=== PATIENT | female | born 2000 | race African-American/Black ===

== ENCOUNTER 2020-10-09 13:17 | Outpatient (REF) | payer MEDICARE, MEDICAID, SELFPAY ==
[2020-10-10 09:36] LABS: BV Int Neg Control Negative (Negative); BV Int Pos Control Positive (Positive)
[2020-10-14 15:37] LABS: HPV mRNA E6/E7 rflx Not Detected (Not Detected)
[2020-10-15 11:33] LABS: CT PCR NOT DETECTED (Not Detect.); NG PCR NOT DETECTED (Not Detect.)
== END 2020-10-09 13:18 | disposition home or self-care (01) ==
LOC: HO.LAB 13:17
PROVIDERS: Visit Provider Advanced Practice Midwife
DX: Z01.419 Encounter for gynecological examination (general) (routine) without abnormal findings (principal); Z20.2 Contact with and (suspected) exposure to infections with a predominantly sexual mode of transmission; N89.8 Other specified noninflammatory disorders of vagina; Z31.69 Encounter for other general counseling and advice on procreation
CPT/HCPCS: 87480; 87491; 87510; 87591; 87624; 87625; 87660; 88142

== ENCOUNTER 2020-10-10 11:03 | Outpatient (REF) | payer MEDICAID, SELFPAY | END 2020-10-10 11:04 | disposition home or self-care (01) | LOC: HO.LAB 11:03 | PROVIDERS: Visit Provider Advanced Practice Midwife | DX: Z13.89 Encounter for screening for other disorder (principal) | CPT/HCPCS: 88142 ==

== ENCOUNTER 2020-10-18 13:45 | Outpatient (REF) | payer MEDICARE, MEDICAID, SELFPAY | END 2020-10-18 13:46 | disposition home or self-care (01) | LOC: HO.LAB 13:45 | PROVIDERS: Visit Provider Internal Medicine | DX: Z20.828 Contact with and (suspected) exposure to other viral communicable diseases (principal) | CPT/HCPCS: C9803; U0003 ==

== ENCOUNTER 2021-05-02 20:47 | Inpatient (IN) | payer MEDICARE, MEDICAID, SELFPAY ==
--- NOTE | 2021-05-02 | ECG_ITS ---
Test Reason : OVERDOSE Blood Pressure : / mmHG Vent. Rate : 077 BPM Atrial Rate : 077 BPM P-R Int : 140 ms QRS Dur : 102 ms QT Int : 422 ms P-R-T Axes : 038 034 033 degrees QTc Int : 477 ms Normal sinus rhythm Normal ECG No previous ECGs available Referred By: Cathy Shabazz Electronically Signed By:Alex Stewart
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
[2021-05-02 21:08] VITALS: BP 131/73; PULSE 84; RESP 18; TEMP 36.8; O2SAT 98; BMI 26.4
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
[2021-05-02 22:01] LABS: MANUAL DIFF FLAG NO
[2021-05-02 22:02] VITALS: BP 126/77; PULSE 75; RESP 20; O2SAT 100
[2021-05-02 22:02] LABS: Basophils Percent Auto 0.2 % (0-2); Hematocrit 36.4 % (37-47); Hemoglobin 12.5 g/dl (12.0-16.0); Imm Gran Abs Auto 0.03 X10*3/uL (0.00-0.03); Imm Gran Pct Auto 0.3 % (0.0-0.4); Lymphocytes Absolute Auto 0.8 X10*3/uL (1.2-4.9); Lymphocytes Percent Auto 8.4 % (20-40); Mean Corpuscular HGB Conc 34.3 g/dl (31.0-35.0); Mean Corpuscular Volume 81.6 fL (80-98); Mean Platelet Volume 9.1 fL (9.4-12.3); Monocytes Absolute Auto 0.2 X10*3/uL (0.1-1.2); Monocytes Percent Auto 1.8 % (2-11); Neutrophils Absolute Auto 8.9 X10*3/uL (2.0-8.3); Neutrophils Percent Auto 89.3 % (45-73); Platelet Count 324 X10*3/uL (160-400); Red Blood Count 4.46 X10*6/uL (4.20-5.50); Red Cell Distribution Width 12.5 % (11.0-16.0)
[2021-05-02 22:21] LABS: Ethanol < 10 mg/dL
[2021-05-02 22:24] LABS: Alanine Aminotransferase 20 U/L (0-31); Albumin Level 4.9 g/dL (3.5-5.0); Alkaline Phosphatase 56 U/L (39-117); Anion Gap 16 (12-20); Aspartate Amino Transferase 35 U/L (5-31); Bilirubin Total 1.2 mg/dL (0.0-1.0); Blood Urea Nitrogen 17 mg/dL (9-16); Calcium 9.3 mg/dL (8.4-10.2); Carbon Dioxide 18 mmol/L (22-29); Chloride 107 mmol/L (96-108); Creatinine Clr Calc Pharmacy 109.7; Estimated Glomerular Filt Rate > 60; Glucose Random 126 mg/dL (60-115); Sodium 137 mmol/L (135-145); Total Protein 7.8 g/dL (6.5-8.0)
[2021-05-02 22:27] LABS: Acetaminophen LAB 51 mcg/mL (<30); Lipase 14 U/L (8-78); Salicylate < 5.0 mg/dL (15-30)
--- NOTE | 2021-05-02 22:30 | PC.NURSE ---
this rn witnessed that the patient verbally confirmed she took 10+ tylenol at approximately 1030 am on 05/02/21
--- NOTE | 2021-05-02 22:42 | PC.NURSE ---
Contact made to Poision control, Plan at this time: EKG, Draw INR Pt meets criteria for aceatdose 1st bag 150mg/kg in 200ml d5w over 1 hr 2nd 50mg/kg in 500ml d5w over 4hrs 3rd bag 100mg/kg in 1L d5w over 16hrs
[2021-05-02] MEDS: Diphth,Pertus(ACell),Tet Adult 0.5 ML SYRINGE IM (22:43)
[2021-05-02] MEDS: Amoxicillin/Potassium Clav 875 MG TABLET PO (22:43)
--- NOTE | 2021-05-02 22:44 | PC.NURSE ---
confirmed pharmacy to mix aceadote for ed prior to leaving.
[2021-05-02 22:48] VITALS: BP 122/81; PULSE 80; RESP 19; O2SAT 99
[2021-05-02 22:51] LABS: INTERNATIONAL NORM RATIO 1.3 (0.9-1.1); Prothrombin Time 15.8 SEC (10.8-13.0)
[2021-05-02] MEDS: ondansetron HCL 4 MG/2 ML VIAL IVPUSH (22:51)
[2021-05-02] MEDS: 0.9 % Sodium Chloride 1,000 ML 100 ML IVCONT (23:03)
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
[2021-05-02 23:30] VITALS: BP 124/76; PULSE 76; RESP 14; TEMP 37.3; O2SAT 98
[2021-05-02 23:32] LABS: Glucose Urine UA NEG (NEG); Leukocyte Esterase Urine NEG (NEG); Nitrite Urine NEG (NEG); Specific Gravity - Urine >= 1.030 (1.005-1.025); Urine Blood NEG (NEG); Urine Ketones 15 MG/DL (NEG); Urine Protein 1+ MG/DL (NEG-TRACE)
[2021-05-02 23:34] LABS: Appearance Urine HAZY; Color Urine YELLOW; UPreg QC Valid YES; Urine Pregnancy NEGATIVE (NEGATIVE)
[2021-05-02 23:44] LABS: COVID-19 Test Negative (Negative); IDNOW Serial# 9DD0AD1C
[2021-05-02 23:46] LABS: Bacteria Urine 2+ /LPF; RBC Urine 0 /HPF (0); Squamous Epithelial Cell Urine 4+ /LPF
[2021-05-02 23:48] LABS: Amphetamine Screen Urine Not Detected (Not Detect); Barbiturates, Urine Not Detected (Not Detect); Benzodiazepines Screen Urine Not Detected (Not Detect); Cannabinoid Screen Urine Not Detected (Not Detect); Cocaine Screen Urine Not Detected (Not Detect); Opiate Screen Urine Not Detected (Not Detect); Phencyclidine Screen Urine Not Detected (Not Detect)
[2021-05-03] VITALS (7 sets, daily range): BP systolic 104–145; BP diastolic 59–95; PULSE 82–100; RESP 17–20; TEMP 36.7–37.3; O2SAT 98–100; BMI 26.8
--- NOTE | 2021-05-03 00:38 | PC.NURSE ---
kristofer from poison controll called and ekg and labs reported, no action needed at this time.
[2021-05-03] MEDS: 0.9 % Sodium Chloride Flush 3 ML SYRINGE IVFLUSH ×4 (01:27→20:57)
[2021-05-03 05:59] LABS: MANUAL DIFF FLAG NO
[2021-05-03 06:11] LABS: Basophils Percent Auto 0.3 % (0-2); Hematocrit 36.2 % (37-47); Hemoglobin 12.3 g/dl (12.0-16.0); Imm Gran Abs Auto 0.04 X10*3/uL (0.00-0.03); Imm Gran Pct Auto 0.3 % (0.0-0.4); Lymphocytes Absolute Auto 2.3 X10*3/uL (1.2-4.9); Lymphocytes Percent Auto 19.5 % (20-40); Mean Corpuscular Hemoglobin 27.8 pg (27.0-33.0); Mean Corpuscular Volume 81.9 fL (80-98); Mean Platelet Volume 9.6 fL (9.4-12.3); Monocytes Absolute Auto 0.7 X10*3/uL (0.1-1.2); Monocytes Percent Auto 6.3 % (2-11); Neutrophils Absolute Auto 8.6 X10*3/uL (2.0-8.3); Neutrophils Percent Auto 73.6 % (45-73); Platelet Count 362 X10*3/uL (160-400); Red Blood Count 4.42 X10*6/uL (4.20-5.50); Red Cell Distribution Width 12.6 % (11.0-16.0); White Blood Count 11.7 X10*3/uL (4.8-10.8)
[2021-05-03 06:33] LABS: Anion Gap 11 (12-20); Blood Urea Nitrogen 13 mg/dL (9-16); Calcium 9.1 mg/dL (8.4-10.2); Carbon Dioxide 23 mmol/L (22-29); Chloride 106 mmol/L (96-108); Creatinine Clr Calc Pharmacy 118.2; Estimated Glomerular Filt Rate > 60; Glucose Random 136 mg/dL (60-115); Potassium 4.2 mmol/L (3.3-5.1); Sodium 136 mmol/L (135-145)
[2021-05-03 08:00] LABS: Magnesium 2.2 mg/dL (1.6-2.6)
[2021-05-03] MEDS: Famotidine 20 MG TABLET PO (08:28)
[2021-05-03] MEDS: 0.9 % Sodium Chloride 1,000 ML 100 ML IVCONT (08:28)
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
[2021-05-03 12:22] LABS: Acetaminophen LAB 1 mcg/mL (<30); Alanine Aminotransferase 15 U/L (0-31); Alkaline Phosphatase 45 U/L (39-117); Aspartate Amino Transferase 25 U/L (5-31); Bilirubin Direct 0.4 mg/dL (0.0-0.5); Bilirubin Total 1.2 mg/dL (0.0-1.0); Total Protein 6.4 g/dL (6.5-8.0)
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
[2021-05-03 19:56] LABS: Acetaminophen LAB 1 mcg/mL (<30); Alanine Aminotransferase 15 U/L (0-31); Alkaline Phosphatase 46 U/L (39-117); Aspartate Amino Transferase 22 U/L (5-31); Bilirubin Direct 0.3 mg/dL (0.0-0.5); Bilirubin Total 0.7 mg/dL (0.0-1.0); Total Protein 6.4 g/dL (6.5-8.0)
[2021-05-03 20:04] LABS: INTERNATIONAL NORM RATIO 1.4 (0.9-1.1); Prothrombin Time 16.1 SEC (10.8-13.0)
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
[2021-05-04 03:06] VITALS: BP 122/71; PULSE 75; RESP 18; TEMP 36.6; O2SAT 98
[2021-05-04 06:54] VITALS: BP 131/83; PULSE 79; RESP 20; TEMP 36.9; O2SAT 99
[2021-05-04 07:03] LABS: Alanine Aminotransferase 18 U/L (0-31); Albumin Level 3.9 g/dL (3.5-5.0); Alkaline Phosphatase 40 U/L (39-117); Aspartate Amino Transferase 32 U/L (5-31); Bilirubin Direct 0.2 mg/dL (0.0-0.5); Bilirubin Total 0.9 mg/dL (0.0-1.0); Total Protein 6.7 g/dL (6.5-8.0)
[2021-05-04] MEDS: Famotidine 20 MG TABLET PO (08:25)
[2021-05-04] MEDS: 0.9 % Sodium Chloride Flush 3 ML SYRINGE IVFLUSH (08:26)
[2021-05-04 11:13] VITALS: BP 117/79; PULSE 85; RESP 20; TEMP 37.3; O2SAT 100
--- NOTE | 2021-05-04 11:32 | MHC.CM.PN ---
PT CLEARED FOR DISCHARGE HOME TODAY. PT WILL SELF ARRANGE TRANSPORT WITH FAMILY
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
== END 2021-05-04 14:45 | disposition home or self-care (01) | DRG 918 ==
LOC: HO.ED 22:55 → HO.IMC 05-03 00:12
PROVIDERS: Admitting Provider Hospitalist; Emergency Provider Emergency Medicine; Visit Provider Hospitalist
DX: T39.1X2A Poisoning by 4-Aminophenol derivatives, intentional self-harm, initial encounter (principal); Z20.822 Contact with and (suspected) exposure to COVID-19
CPT/HCPCS: 36415; 70450; 72125; 80048; 80053; 80076; 80143; 80179; 80307; 81001; 81025; 82077; 83690; 83735; 85025; 85610; 87635; 90715; 93005; 99285; J0132; J2405

== ENCOUNTER 2021-07-20 16:28 | Emergency (ER) | payer MEDICAID, SELFPAY ==
[2021-07-20 16:58] VITALS: BP 123/78; PULSE 74; RESP 16; TEMP 36.6; O2SAT 100; BMI 28.8
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
[2021-07-20 21:48] LABS: Appearance Urine HAZY; Color Urine YELLOW; Glucose Urine UA NEG (NEG); Leukocyte Esterase Urine NEG (NEG); Nitrite Urine NEG (NEG); PH 6.5 (5.0-8.0); Specific Gravity - Urine 1.025 (1.005-1.025); Urine Blood NEG (NEG); Urine Ketones NEG (NEG); Urine Protein NEG (NEG-TRACE)
[2021-07-20 22:09] LABS: HCG Quantitative < 2 mIU/mL
[2021-07-20 22:55] LABS: RBC Urine 0 /HPF (0); Squamous Epithelial Cell Urine 3+ /LPF; WBC Urine 0-2 /HPF (0-4)
[2021-07-20 22:56] LABS: Bacteria Urine 2+ /LPF
[2021-07-20] MEDS: Azithromycin 500 MG TABLET 1000 MG PO (23:34)
[2021-07-20] MEDS: levonorgestreL 1.5 MG TABLET PO (23:35)
[2021-07-20] MEDS: Post Exposure Medication Kit 1 KIT PO (23:37)
[2021-07-20 23:39] VITALS: BP 113/77; PULSE 64; RESP 16; TEMP 36.7; O2SAT 97
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
[2021-07-21 03:47] LABS: CT PCR NOT DETECTED (Not Detect.); NG PCR NOT DETECTED (Not Detect.)
[2021-07-21 08:21] LABS: HBS Num1 32.91 mIU/mL (0-7.99); HBc Num1 0.06 S/CO (0.00-0.79); HIV AB/AG Nonreactive (Nonreactive); HIV Num 1 0.06 S/CO (0.00-0.99); Hepatitis B Core Antibody Nonreactive (Nonreactive); Hepatitis B Surface Antigen Negative (Negative); ~HepC Num1 0.11 S/CO (0.00-0.79); ~Hepatitis B Surface Antibody REACTIVE (Nonreactive); ~Hepatitis C Antibody Nonreactive (Nonreactive)
== END 2021-07-21 00:28 | disposition home or self-care (01) ==
PROVIDERS: Emergency Provider Emergency Medicine
DX: T76.21XA Adult sexual abuse, suspected, initial encounter (principal); X58.XXXA Exposure to other specified factors, initial encounter; Z79.899 Other long term (current) drug therapy; Z20.2 Contact with and (suspected) exposure to infections with a predominantly sexual mode of transmission
CPT/HCPCS: 36415; 81001; 84702; 86704; 86706; 86803; 87340; 87389; 87491; 87591; 96372; 99284

== ENCOUNTER → 2021-08-12 15:17 | Outpatient (BNVA) | payer MEDICARE, MEDICAID, SELFPAY | PROVIDERS: Visit Provider Advanced Practice Midwife | DX: Z30.09 Encounter for other general counseling and advice on contraception (principal) | CPT/HCPCS: Q3014 ==

== ENCOUNTER 2021-09-02 09:08 | Emergency (ER) | payer MEDICARE, MEDICAID, SELFPAY ==
[2021-09-02 09:31] VITALS: BP 112/80; PULSE 77; RESP 16; TEMP 36.8; O2SAT 100; BMI 27.3
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
[2021-09-02 10:13] LABS: Appearance Urine CLOUDY; Color Urine STRAW; Glucose Urine UA NEG (NEG); Leukocyte Esterase Urine 2+ (NEG); Nitrite Urine NEG (NEG); PH 7.5 (5.0-8.0); Specific Gravity - Urine 1.025 (1.005-1.025); UACC Culture Trigger YES; Urine Blood 2+ (NEG); Urine Ketones NEG (NEG); Urine Protein 2+ MG/DL (NEG-TRACE)
[2021-09-02 10:14] LABS: UPreg QC Valid YES; Urine Pregnancy NEGATIVE (NEGATIVE)
[2021-09-02 10:19] LABS: Bacteria Urine 2+ /LPF; Squamous Epithelial Cell Urine 1+ /LPF; WBC Urine 50-75 /HPF (0-4)
== END 2021-09-02 10:37 | disposition home or self-care (01) ==
PROVIDERS: Nurse Practitioner Family; Emergency Provider Emergency Medicine
DX: N39.0 Urinary tract infection, site not specified (principal)
CPT/HCPCS: 81001; 81025; 87086; 87088; 87186; 99283; 99284

== ENCOUNTER 2021-12-17 13:50 | Outpatient (REF) | payer MEDICARE, MEDICAID, SELFPAY ==
[2021-12-17 16:50] LABS: HCG Quantitative < 2 mIU/mL; Thyroid Stimulating Hormone 0.78 uIU/mL (0.32-4.0)
[2021-12-18 03:40] LABS: CT PCR DETECTED (Not Detect.); NG PCR NOT DETECTED (Not Detect.)
[2021-12-18 09:21] LABS: BV Int Neg Control Negative (Negative); BV Int Pos Control Positive (Positive)
[2021-12-19 06:17] LABS: Prolactin 11.4 ng/mL
[2021-12-19 07:51] LABS: DHEA Sulfate 394 mcg/dL (18-391)
[2021-12-23 16:57] LABS: Testosterone, Free 3.9 pg/mL (0.1-6.4); Testosterone, Total 32 ng/dL (2-45)
== END 2021-12-17 13:51 | disposition home or self-care (01) ==
LOC: HO.LAB 13:50
PROVIDERS: Visit Provider Advanced Practice Midwife
DX: Z01.411 Encounter for gynecological examination (general) (routine) with abnormal findings (principal); R10.2 Pelvic and perineal pain; N92.6 Irregular menstruation, unspecified; Z20.2 Contact with and (suspected) exposure to infections with a predominantly sexual mode of transmission; L68.0 Hirsutism
CPT/HCPCS: 36415; 82627; 83498; 84146; 84402; 84403; 84443; 84702; 87480; 87491; 87510; 87591; 87660

== ENCOUNTER 2022-01-08 10:44 | Outpatient (REF) | payer MEDICARE, MEDICAID, SELFPAY ==
--- NOTE | ~2022-01-08 | US_ITS ---
EXAMINATION: US PELVIS CLINICAL INFORMATION: Irregular menstruation COMPARISON: None TECHNIQUE: Ultrasound of the pelvis is performed using both transabdominal and transvaginal transducers along with Doppler. Transvaginal imaging is performed due to inadequate visualization transabdominally. FINDINGS: The uterus is anteverted and measures 9 x 4.3 x 4.6 cm in dimension. No focal uterine lesion is seen. Endometrial thickness is normal measuring 0.7 cm. The cervix is normal appearing. Right ovary upper normal in size and measures 4.2 x 2.7 x 3.1 cm, volume 18.6 mL. There are multiple small peripheral cysts or follicles in the right ovary. The left ovary is normal in size and measures 3.6 x 1.8 x 3 x 1 cm. There are multiple small peripheral cysts or follicles in the left ovary. There is no fluid in the pelvis. US/US pelvic and transvaginal IMPRESSION: Polycystic appearance of the ovaries.
== END 2022-01-08 10:45 | disposition home or self-care (01) ==
LOC: HO.US 10:44
PROVIDERS: Visit Provider Advanced Practice Midwife
DX: R10.2 Pelvic and perineal pain (principal); N92.6 Irregular menstruation, unspecified
CPT/HCPCS: 76830; 76856

== ENCOUNTER → 2022-01-22 11:10 | Outpatient (BNVA) | payer MEDICAID, SELFPAY | PROVIDERS: PCP Internal Medicine; Visit Provider Advanced Practice Midwife | DX: E28.2 Polycystic ovarian syndrome (principal); Z71.2 Person consulting for explanation of examination or test findings | CPT/HCPCS: Q3014 ==

== ENCOUNTER 2022-05-05 14:18 | Outpatient (REF) | payer MEDICAID, SELFPAY ==
[2022-05-06 09:35] LABS: CT PCR NOT DETECTED (Not Detect.); NG PCR NOT DETECTED (Not Detect.)
[2022-05-06 10:04] LABS: BV Int Neg Control Negative (Negative); BV Int Pos Control Positive (Positive)
== END 2022-05-05 14:19 | disposition home or self-care (01) ==
LOC: HO.LAB 14:18
PROVIDERS: Visit Provider Advanced Practice Midwife
DX: Z11.3 Encounter for screening for infections with a predominantly sexual mode of transmission (principal); N89.8 Other specified noninflammatory disorders of vagina; Z20.2 Contact with and (suspected) exposure to infections with a predominantly sexual mode of transmission
CPT/HCPCS: 87480; 87491; 87510; 87591; 87660; 99212

== ENCOUNTER 2022-06-23 09:47 | Outpatient (REF) | payer MEDICAID, SELFPAY ==
[2022-06-23 10:11] LABS: MANUAL DIFF FLAG NO
[2022-06-23 10:38] LABS: Basophils Percent Auto 0.6 % (0-2); Eosinophils Absolute Auto 0.3 X10*3/uL (0.0-0.4); Eosinophils Percent Auto 3.9 % (0-4); Hematocrit 36.9 % (37.0-47.0); Hemoglobin 12.1 g/dl (12.0-16.0); Imm Gran Abs Auto 0.04 X10*3/uL (0.00-0.03); Imm Gran Pct Auto 0.6 % (0.0-0.4); Lymphocytes Percent Auto 29.5 % (20-40); Mean Corpuscular HGB Conc 32.8 g/dl (31.0-35.0); Mean Corpuscular Volume 82.4 fL (80.0-98.0); Mean Platelet Volume 9.7 fL (9.4-12.3); Monocytes Absolute Auto 0.3 X10*3/uL (0.1-1.2); Monocytes Percent Auto 4.8 % (2-11); Neutrophils Absolute Auto 4.1 x10*3/uL (2.0-8.3); Neutrophils Percent Auto 60.6 % (45-73); Platelet Count 291 X10*3/uL (160-400); Red Blood Count 4.48 X10*6/uL (4.20-5.50); Red Cell Distribution Width 12.8 % (11.0-16.0); White Blood Count 6.7 X10*3/uL (4.8-10.8)
[2022-06-23 11:09] LABS: Alanine Aminotransferase 26 U/L (0-31); Albumin Level 4.5 g/dL (3.5-5.0); Alkaline Phosphatase 55 U/L (39-117); Anion Gap 14 (12-20); Aspartate Amino Transferase 29 U/L (5-31); Bilirubin Total 0.4 mg/dL (0.0-1.0); Blood Urea Nitrogen 11 mg/dL (9-16); Calcium 9.2 mg/dL (8.4-10.2); Carbon Dioxide 26 mmol/L (22-29); Chloride 103 mmol/L (96-108); Cholesterol 231 mg/dL; Estimated Glomerular Filt Rate > 60; Glucose Fasting 80 mg/dL (60-99); HDL Cholesterol 55 mg/dL; LDL Cholesterol Calculated 137 mg/dl; Potassium 4.4 mmol/L (3.3-5.1); Sodium 139 mmol/L (135-145); Total Protein 7.5 g/dL (6.5-8.0); Triglycerides 198 mg/dL
[2022-06-25 15:46] LABS: TS Negative Control Passed; TS Panel A 0; TS Panel B 0; TS Positive Control Passed; TSpotTB Negative (Negative)
== END 2022-06-23 09:48 | disposition home or self-care (01) ==
LOC: HO.LAB 09:47
PROVIDERS: PCP Internal Medicine; Visit Provider Internal Medicine
DX: Z00.00 Encounter for general adult medical examination without abnormal findings (principal); Z11.1 Encounter for screening for respiratory tuberculosis; D72.829 Elevated white blood cell count, unspecified
CPT/HCPCS: 36415; 80053; 80061; 85025; 86481

== ENCOUNTER 2022-08-29 13:44 | Emergency (ER) | payer MEDICAID, SELFPAY ==
--- NOTE | ~2022-08-29 | XR_ITS ---
EXAMINATION: XR CHEST CLINICAL INFORMATION: Chest pain. COMPARISON: Chest radiographs dated 02/28/2011. TECHNIQUE: Frontal view of the chest was obtained. FINDINGS: No significant abnormality is noted involving the heart, lungs, mediastinum, bony thorax or soft tissues. XR/XR chest 1V IMPRESSION: No acute cardiopulmonary process.
[2022-08-29 14:00] VITALS: BP 117/75; PULSE 78; RESP 18; TEMP 36.8; O2SAT 94; BMI 32.0
--- NOTE | 2022-08-29 14:05 | ECG_ITS ---
Test Reason : CHEST PAIN Blood Pressure : / mmHG Vent. Rate : 076 BPM Atrial Rate : 076 BPM P-R Int : 150 ms QRS Dur : 102 ms QT Int : 382 ms P-R-T Axes : 018 023 011 degrees QTc Int : 429 ms Normal sinus rhythm Incomplete right bundle branch block Borderline ECG When compared with ECG of 02-MAY-2021 22:42, Incomplete right bundle branch block is now Present Referred By: Generic ED Physician Electronically Signed By:WAYLON ORANTES MD
[2022-08-29 14:41] LABS: COVID-19 Test Negative (Negative)
[2022-08-29 15:43] LABS: MANUAL DIFF FLAG NO
[2022-08-29 15:44] LABS: Basophils Absolute Auto 0.1 X10*3/uL (0.0-0.2); Basophils Percent Auto 0.6 % (0-2); Eosinophils Absolute Auto 0.5 X10*3/uL (0.0-0.4); Hematocrit 36.6 % (37.0-47.0); Imm Gran Abs Auto 0.05 X10*3/uL (0.00-0.03); Imm Gran Pct Auto 0.6 % (0.0-0.4); Lymphocytes Absolute Auto 2.4 X10*3/uL (1.2-4.9); Lymphocytes Percent Auto 28.9 % (20-40); Mean Corpuscular HGB Conc 32.8 g/dl (31.0-35.0); Mean Corpuscular Hemoglobin 27.2 pg (27.0-33.0); Mean Platelet Volume 9.4 fL (9.4-12.3); Monocytes Absolute Auto 0.4 X10*3/uL (0.1-1.2); Monocytes Percent Auto 4.9 % (2-11); Platelet Count 268 X10*3/uL (160-400); Red Blood Count 4.41 X10*6/uL (4.20-5.50); Red Cell Distribution Width 12.2 % (11.0-16.0); White Blood Count 8.4 X10*3/uL (4.8-10.8)
[2022-08-29 16:05] LABS: Anion Gap 16 (12-20); Blood Urea Nitrogen 14 mg/dL (9-16); Calcium 9.7 mg/dL (8.4-10.2); Carbon Dioxide 24 mmol/L (22-29); Chloride 104 mmol/L (96-108); Creatinine Clr Calc Pharmacy 125.5; Estimated Glomerular Filt Rate > 60; Glucose Random 92 mg/dL (60-115); Potassium 4.1 mmol/L (3.3-5.1); Sodium 140 mmol/L (135-145)
[2022-08-29 16:12] LABS: Troponin-I High Sensitivity < 3.5 ng/L (<3.5-17.0)
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
[2022-08-29 18:36] LABS: D Dimer High Sensitivity < 150 NG/ML
[2022-08-29] MEDS: Ketorolac Tromethamine 15 MG/ML VIAL 30 MG IVPUSH (19:11)
== END 2022-08-29 19:21 | disposition home or self-care (01) ==
PROVIDERS: Physician Assistant; Emergency Provider Emergency Medicine; PCP Internal Medicine
DX: R07.9 Chest pain, unspecified (principal); M94.0 Chondrocostal junction syndrome [Tietze]; R06.02 Shortness of breath; I45.19 Other right bundle-branch block; F12.90 Cannabis use, unspecified, uncomplicated; Z20.822 Contact with and (suspected) exposure to COVID-19
CPT/HCPCS: 36415; 71045; 80048; 84484; 85025; 85379; 87635; 93005; 96374; 99284; J1885

== ENCOUNTER 2023-06-09 02:40 | Emergency (ER) | payer MEDICAID, SELFPAY ==
[2023-06-09 02:44] VITALS: BP 136/92; PULSE 91; O2SAT 97
[2023-06-09 02:50] VITALS: BP 135/86; PULSE 80; RESP 14; TEMP 36.5; O2SAT 99; BMI 31.9
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
[2023-06-09] MEDS: methylPREDNISolone Sod Succ 125 MG/2 ML VIAL 60 MG IM (03:45)
[2023-06-09] MEDS: Famotidine 20 MG TABLET 40 MG PO (03:46)
== END 2023-06-09 03:52 | disposition home or self-care (01) ==
LOC: HO.ED 03:25
PROVIDERS: Emergency Provider Emergency Medicine
DX: L30.9 Dermatitis, unspecified (principal); Z79.899 Other long term (current) drug therapy
CPT/HCPCS: 96372; 99284; J2930

== ENCOUNTER 2023-07-02 08:43 | Outpatient (AMB) | payer MEDICAID, SELFPAY ==
[2023-07-02 08:49] VITALS: BP 110/62; PULSE 80; O2SAT 98; BMI 32.9
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
== END 2023-07-02 09:09 | disposition home or self-care (01) ==
PROVIDERS: Visit Provider Nurse Practitioner Family
DX: L30.9 Dermatitis, unspecified (principal)
CPT/HCPCS: 99213

== ENCOUNTER 2023-10-27 09:41 | Emergency (ER) | payer MEDICAID, SELFPAY ==
--- NOTE | ~2023-10-27 | US_ITS ---
EXAMINATION: US OBSTETRICAL ULTRASOUND CLINICAL INFORMATION: Positive test. Abdominal pain. COMPARISON: None available. LMP: 08/14/2023. Gestational age by maternal dates is 10 weeks 4 days. Estimated date of delivery by maternal dates is 05/20/2024. TECHNIQUE: Transabdominal first trimester OB ON FINDINGS: There is a single intrauterine gestational sac with visible yolk sac, embryo/fetus, and cardiac activity. There is no significant subchorionic hemorrhage or hematoma. HR: 1 63 beats per minute. CRL (crown rump length): 3 cm (9 weeks 6 days +/- 4 days). AALIYAH (estimated date of delivery): 05/25/2024 +/- 4 days. MATERNAL ADNEXA: The right maternal ovary measures 2.4 x 2 x 1.5 cm. The left maternal ovary measures 4.9 x 3.2 x 2.5 cm. 2.5 x 1.9 x 2.2 cm cyst. There is no significant maternal adnexal mass. No maternal pelvic ascites. US/US OB <= 14 weeks fetus IMPRESSION: 1. Single intrauterine gestation with ultrasound gestational age of 9 weeks 6 days +/- 4 days. 2. Estimated date of delivery is 05/25/2024 +/- 4 days. 3. No maternal adnexal mass or pelvic ascites.
[2023-10-27 10:53] VITALS: BP 135/78; PULSE 84; RESP 19; TEMP 36.6; O2SAT 98; BMI 31.9
[2023-10-27 12:04] LABS: MANUAL DIFF FLAG NO
[2023-10-27 12:06] LABS: Basophils Percent Auto 0.3 % (0-2); Eosinophils Absolute Auto 0.2 X10*3/uL (0.0-0.4); Eosinophils Percent Auto 2.3 % (0-4); Hematocrit 31.8 % (37.0-47.0); Hemoglobin 10.7 g/dl (12.0-16.0); Imm Gran Abs Auto 0.04 X10*3/uL (0.00-0.03); Imm Gran Pct Auto 0.5 % (0.0-0.4); Lymphocytes Absolute Auto 1.6 X10*3/uL (1.2-4.9); Lymphocytes Percent Auto 18.7 % (20-40); Mean Corpuscular HGB Conc 33.6 g/dl (31.0-35.0); Mean Corpuscular Hemoglobin 27.2 pg (27.0-33.0); Mean Corpuscular Volume 80.9 fL (80.0-98.0); Mean Platelet Volume 9.4 fL (9.4-12.3); Monocytes Absolute Auto 0.3 X10*3/uL (0.1-1.2); Monocytes Percent Auto 3.9 % (2-11); Neutrophils Absolute Auto 6.5 x10*3/uL (2.0-8.3); Neutrophils Percent Auto 74.3 % (45-73); Platelet Count 255 X10*3/uL (160-400); Red Blood Count 3.93 X10*6/uL (4.20-5.50); Red Cell Distribution Width 12.7 % (11.0-16.0); White Blood Count 8.7 X10*3/uL (4.8-10.8)
[2023-10-27 12:07] LABS: Appearance Urine Clear; Color Urine Yellow; Glucose Urine UA Negative (Negative); Leukocyte Esterase Urine Negative (Negative); Nitrite Urine Negative (Negative); PH 5.5 (5.0-9.0); Specific Gravity - Urine >= 1.030 (1.005-1.025); Urine Blood Negative (Negative); Urine Ketones Negative (Negative); Urine Protein Trace mg/dL (Neg-Trace)
[2023-10-27 12:08] LABS: UPreg QC Valid YES; Urine Pregnancy POSITIVE (NEGATIVE)
[2023-10-27 12:20] LABS: Alanine Aminotransferase 16 U/L (0-31); Albumin Level 4.1 g/dL (3.5-5.0); Alkaline Phosphatase 63 U/L (39-117); Anion Gap 11 (12-20); Aspartate Amino Transferase 17 U/L (5-31); Bilirubin Direct 0.2 mg/dL (0.0-0.5); Bilirubin Total 0.4 mg/dL (0.0-1.0); Blood Urea Nitrogen 10 mg/dL (9-16); Calcium 9.5 mg/dL (8.4-10.2); Carbon Dioxide 24 mmol/L (22-29); Chloride 104 mmol/L (96-108); Creatinine Clr Calc Pharmacy 141.5; Estimated Glomerular Filt Rate > 60; Glucose Random 80 mg/dL (60-115); Lipase 12 U/L (8-78); Potassium 3.7 mmol/L (3.3-5.1); Sodium 135 mmol/L (135-145); Total Protein 7.3 g/dL (6.5-8.0)
[2023-10-27 13:35] LABS: HCG Quantitative 65915 mIU/mL
== END 2023-10-27 16:11 | disposition left against medical advice (07) ==
PROVIDERS: Physician Assistant; Emergency Provider Emergency Medicine; PCP Physician Assistant
DX: R10.2 Pelvic and perineal pain (principal); R14.0 Abdominal distension (gaseous); Z79.899 Other long term (current) drug therapy
CPT/HCPCS: 36415; 76801; 80048; 80076; 81003; 81025; 83690; 84702; 85025; 99282; 99284

== ENCOUNTER 2024-01-12 09:25 | Outpatient (AMB) | payer MEDICAID, SELFPAY ==
[2024-01-12 09:33] VITALS: BP 126/82; BMI 33.1
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
== END 2024-01-12 09:57 | disposition home or self-care (01) ==
PROVIDERS: PCP Internal Medicine; Visit Provider Internal Medicine
DX: Z00.00 Encounter for general adult medical examination without abnormal findings (principal); F32.0 Major depressive disorder, single episode, mild
CPT/HCPCS: 99395

== ENCOUNTER 2024-03-08 11:15 | Emergency (ER) | payer MEDICAID, SELFPAY ==
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
[2024-03-08 11:27] VITALS: BP 115/64; BP 116/63; PULSE 103; PULSE 99; RESP 18; TEMP 37.2; O2SAT 100; O2SAT 99; BMI 34.4
--- NOTE | 2024-03-08 13:44 | PC.NURSE ---
PT C/O ITCHINESS, AWARE
[2024-03-08] MEDS: hydrOXYzine HCL 25 MG TABLET PO (14:10)
[2024-03-08 14:15] VITALS: BP 116/63; PULSE 99; RESP 18; TEMP 37.2; O2SAT 99
== END 2024-03-08 14:16 | disposition home or self-care (01) ==
PROVIDERS: Emergency Provider Emergency Medicine; PCP Physician Assistant
DX: L23.9 Allergic contact dermatitis, unspecified cause (principal); R22.0 Localized swelling, mass and lump, head
CPT/HCPCS: 99283

== ENCOUNTER 2024-06-11 21:44 | Emergency (ER) | payer MEDICAID, SELFPAY ==
[2024-06-11 21:49] VITALS: BP 139/92; PULSE 103; RESP 18; TEMP 36.5; O2SAT 99; BMI 35.6
[2024-06-11 22:19] LABS: MANUAL DIFF FLAG NO
[2024-06-11 22:20] LABS: Basophils Absolute Auto 0.1 X10*3/uL (0.0-0.2); Basophils Percent Auto 0.6 % (0-2); Eosinophils Absolute Auto 0.5 X10*3/uL (0.0-0.4); Eosinophils Percent Auto 5.3 % (0-4); Hemoglobin 11.5 g/dl (12.0-16.0); Imm Gran Abs Auto 0.05 X10*3/uL (0.00-0.03); Imm Gran Pct Auto 0.6 % (0.0-0.4); Lymphocytes Absolute Auto 2.5 X10*3/uL (1.2-4.9); Lymphocytes Percent Auto 29.7 % (20-40); Mean Corpuscular HGB Conc 34.8 g/dl (31.0-35.0); Mean Corpuscular Hemoglobin 28.5 pg (27.0-33.0); Mean Corpuscular Volume 81.7 fL (80.0-98.0); Mean Platelet Volume 9.5 fL (9.4-12.3); Monocytes Absolute Auto 0.4 X10*3/uL (0.1-1.2); Monocytes Percent Auto 5.2 % (2-11); Neutrophils Percent Auto 58.6 % (45-73); Platelet Count 285 X10*3/uL (160-400); Red Blood Count 4.04 X10*6/uL (4.20-5.50); Red Cell Distribution Width 12.6 % (11.0-16.0); White Blood Count 8.5 X10*3/uL (4.8-10.8)
[2024-06-11 22:27] VITALS: BP 122/70; PULSE 100; RESP 16; TEMP 36.8; O2SAT 97
[2024-06-11 22:32] LABS: Anion Gap 15 (12-20); Blood Urea Nitrogen 16 mg/dL (9-16); Calcium 9.2 mg/dL (8.4-10.2); Carbon Dioxide 21 mmol/L (22-29); Chloride 109 mmol/L (96-108); Creatinine Clr Calc Pharmacy 87.7; Estimated Glomerular Filt Rate > 60; Glucose Random 94 mg/dL (60-115); Potassium 4.1 mmol/L (3.3-5.1); Sodium 141 mmol/L (135-145)
[2024-06-11 22:41] LABS: Appearance Urine Clear; Color Urine Yellow; Glucose Urine UA Negative (Negative); Leukocyte Esterase Urine Negative (Negative); Nitrite Urine Negative (Negative); Specific Gravity - Urine >= 1.030 (1.005-1.025); UMIC TRIGGER UACC YES; Urine Blood Large (3+) (Negative); Urine Ketones Trace mg/dL (Negative); Urine Protein Trace mg/dL (Neg-Trace)
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
[2024-06-11 22:57] LABS: Bacteria Urine None Seen (None Seen); Hyaline Casts Urine 0-2 /LPF (0-2); WBC Urine 0-5 /HPF (0-5)
[2024-06-11 23:08] LABS: UPreg QC Valid YES; Urine Pregnancy NEGATIVE (NEGATIVE)
[2024-06-11 23:11] VITALS: BP 122/70; PULSE 100; RESP 16; TEMP 36.8; O2SAT 97
== END 2024-06-11 23:11 | disposition home or self-care (01) ==
PROVIDERS: Emergency Provider Internal Medicine; PCP Physician Assistant
DX: O20.9 Hemorrhage in early pregnancy, unspecified (principal); Z3A.01 Less than 8 weeks gestation of pregnancy; Z79.899 Other long term (current) drug therapy
CPT/HCPCS: 36415; 80048; 81001; 81025; 85025; 99283

== ENCOUNTER 2025-06-03 17:28 | Emergency (ER) | payer MEDICARE, MEDICAID, SELFPAY ==
[2025-06-03 17:50] VITALS: BP 143/92; PULSE 89; RESP 16; TEMP 36.9; O2SAT 100; BMI 33.9
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
[2025-06-03 18:25] LABS: MANUAL DIFF FLAG NO
[2025-06-03 18:27] LABS: Hematocrit 36.3 % (37.0-47.0); Hemoglobin 12.3 g/dl (12.0-16.0); Imm Gran Abs Auto 0.07 X10*3/uL (0.00-0.03); Imm Gran Pct Auto 0.8 % (0.0-0.4); Lymphocytes Absolute Auto 2.6 X10*3/uL (1.2-4.9); Mean Corpuscular HGB Conc 33.9 g/dl (31.0-35.0); Mean Corpuscular Hemoglobin 27.1 pg (27.0-33.0); Mean Corpuscular Volume 80.0 fL (80.0-98.0); NRBC Abs Auto 0.000 X10*3/uL (0.0-0.012); NRBC Pct Auto 0.0 /100WBC (0.0-0.2); Platelet Count 293 X10*3/uL (160-400); Red Blood Count 4.54 X10*6/uL (4.20-5.50); White Blood Count 8.3 X10*3/uL (4.8-10.8)
[2025-06-03 18:44] LABS: Alanine Aminotransferase 21 U/L (0-31); Albumin Level 4.9 g/dL (3.5-5.0); Alkaline Phosphatase 77 U/L (39-117); Anion Gap 15 (12-20); Aspartate Amino Transferase 22 U/L (5-31); Blood Urea Nitrogen 15 mg/dL (9-16); Calcium 9.3 mg/dL (8.4-10.2); Carbon Dioxide 23 mmol/L (22-29); Chloride 106 mmol/L (96-108); Creatinine Clr Calc Pharmacy 137.2; Estimated Glomerular Filt Rate > 60; Potassium 3.7 mmol/L (3.3-5.1); Sodium 140 mmol/L (135-145); Total Protein 8.1 g/dL (6.5-8.0)
[2025-06-03 18:45] LABS: Acetaminophen LAB < 3 mcg/mL (<30); Salicylate < 5.0 mg/dL (15-30)
[2025-06-03 18:50] LABS: Appearance Urine Clear; Glucose Urine UA Negative (Negative); PH 5.5 (5.0-9.0); Specific Gravity - Urine 1.020 (1.005-1.025)
[2025-06-03 19:00] VITALS: RESP 16
[2025-06-03 19:06] LABS: Cannabinoid Screen Urine POSITIVE (Not Detect)
[2025-06-03 19:10] LABS: UPreg QC Valid YES
--- NOTE | 2025-06-03 19:28 | MHC.CARE ---
Pt will be referred to [facility] [place] [facility] [place] [facility] [facility]. Pt does not meet criteria for IPLOC at this time.
--- NOTE | 2025-06-03 20:37 | PC.NURSE ---
pt has been calm and cooperative, no apparent distress is noted, plan for d/c with PHP referral
[2025-06-03 20:54] VITALS: BP 109/74; PULSE 84; RESP 14; TEMP 37.2; O2SAT 99
--- NOTE | 2025-06-04 14:24 | MHC.CARE ---
Referral to PHP complete
== END 2025-06-03 20:56 | disposition home or self-care (01) ==
PROVIDERS: Physician Assistant; Emergency Provider Emergency Medicine; PCP Physician Assistant
DX: F43.9 Reaction to severe stress, unspecified (principal); R45.851 Suicidal ideations; R11.0 Nausea; L30.9 Dermatitis, unspecified; F33.1 Major depressive disorder, recurrent, moderate; Z79.899 Other long term (current) drug therapy; Z51.81 Encounter for therapeutic drug level monitoring
CPT/HCPCS: 36415; 80053; 80143; 80179; 80307; 81003; 81025; 85025; 99284; S9485